=== PATIENT | female | born 1945 | race Caucasian/White ===

== ENCOUNTER 2018-11-26 17:07 | Observation (INO) | payer OTHER, SELFPAY ==
[2018-11-26 17:15] VITALS: BP 115/77; PULSE 76; RESP 18; TEMP 36.2; O2SAT 100
--- NOTE | 2018-11-26 17:21 | DI.RAD.S_ITS ---
PROCEDURE: XR CHEST 1V INDICATIONS: chest pain TECHNIQUE: One view of the chest was acquired. COMPARISON: None. FINDINGS: Surgical changes and devices: None. Lungs and pleura: The interstitial prominence is identified within the bilateral perihilar regions is present without focal consolidation evident. No effusion or pneumothorax is identified. Mediastinum: Mediastinal contours appear normal. Heart size is normal. Bones and chest wall: No suspicious bony lesions. Overlying soft tissues appear unremarkable. IMPRESSION: Mild to prominent perihilar interstitial markings may be exaggerated by a chronic interstitial changes. Pulmonary edema is difficult to exclude. Dictated by: Robbin Villanueva M.D. on 11/26/2018 at 16:33 Approved by: Robbin Villanueva M.D. on 11/26/2018 at 16:40
[2018-11-26] MEDS: SODIUM CHLORIDE 0.9% 1,000 ML 1000 ML IV (17:57)
[2018-11-26 17:58] VITALS: BP 122/73; PULSE 76; RESP 16; O2SAT 95
[2018-11-26 18:00] LABS: Add Manual Diff / Slide Review NO; Basophils Absolute Auto 0 /uL (0-100); Basophils Percent Auto 0.9 % (0-2); Eosinophils Absolute Auto 0 /uL (0-450); Eosinophils Percent Auto 0.6 % (2-4); Hematocrit 43.4 % (36-46); Hemoglobin 14.8 g/dL (12.0-16.0); Lymphocytes Absolute Auto 700 /uL (1100-4500); Lymphocytes Percent Auto 15.9 % (25-40); Mean Corpuscular HGB Conc 34.2 % (30-36); Mean Corpuscular Hemoglobin 30.6 PG (26-34); Mean Corpuscular Volume 89.5 fL (80-100); Monocytes Absolute Auto 300 /uL (0-900); Monocytes Percent Auto 7.7 % (3-14); Neutrophils Absolute Auto 3200 /uL (1500-7000); Neutrophils Percent Auto 74.9 % (50-75); Platelet Count 190 X10^3/uL (150-400); Red Blood Cell Count 4.86 X10^6/uL (4.0-5.2); Red Cell Distribution Width 12.8 % (11.6-14.8); White Blood Cell Count 4.2 X10^3/uL (4.5-11.0)
[2018-11-26 18:09] LABS: Prothrombin Time 11.5 SECONDS (10.1-12.7)
[2018-11-26 18:11] LABS: Lactate (Lactic Acid) 1.3 mmol/L (0.7-2.1)
[2018-11-26 18:12] LABS: Alanine Aminotransferase 28 IU/L (9-52); Albumin 4.2 g/dL (3.5-5.0); Albumin Globulin Ratio 1.2 (1.0-2.8); Alkaline Phosphatase 72 U/L (38-126); Aspartate Aminotransferase 46 IU/L (14-36); BUN Creatinine Ratio 14.4 (6-22); Bilirubin Total 0.8 mg/dL (0.2-1.3); Blood Urea Nitrogen 13 mg/dL (7-17); Calcium 8.6 mg/dL (8.4-10.2); Carbon Dioxide 30 mmol/L (22-32); Chloride 96 mmol/L (98-107); Creatine Kinase 233 U/L (30-135); Estimated Glomerular Filt Rate > 60.0 mL/min (>60); Globulin 3.5 g/dL (1.7-4.1); Glucose 124 mg/dL (80-110); HEMOLYSIS < 15 (0-50); Lipase 99 U/L (23-300); Sodium 138 mmol/L (137-145); Total Protein 7.7 g/dL (6.3-8.2)
[2018-11-26 18:17] LABS: PTT Partial Thromboplastin Tim 28 SECONDS (26.4-36.2)
[2018-11-26 18:23] LABS: Troponin I 0.018 ng/mL (0.01-0.034)
[2018-11-26 18:30] VITALS: BP 143/67; PULSE 74; RESP 18; O2SAT 99
[2018-11-26 18:40] LABS: Creatine Kinase MB 2.37 ng/mL (<2.37)
[2018-11-26 18:41] LABS: Potassium 2.4 mmol/L (3.4-5.1)
--- NOTE | 2018-11-26 18:47 | ED.SYNCOPE ---
HPI - Syncope General Chief Complaint: Syncope Stated Complaint: syncopal episode,passed out today,low body temp Time Seen by Provider: 11/26/18 18:29 Source: patient and family Limitations: no limitations History of Present Illness HPI narrative: 73-year-old female with history of hypertension, nonsmoking presents with her in the chief complaint of a syncopal episode this afternoon. She had been walking in her hallway when she felt herself get a bit dizzy, flushed and lightheaded. She then lost consciousness and collapsed to the floor. She denies any injury. she denies any chest pain or blurred vision. She does state for the past 2-3 days she has had some headache, sore throat and dry cough. She is visiting with her from [place]. complaint: loss of consciousness Onset (ago): hour(s) Prodromal symptoms: lightheaded Witnessed: yes - by bystander Injuries sustained associated with event: none Current symptoms: none Related Data Home Medications Medication Instructions Recorded Confirmed CARBASALAATCALCIUM 100 mg PO DAILY 11/26/18 11/26/18 enalapril-hydrochlorothiazide 20 mg PO DAILY 11/26/18 11/26/18 levothyroxine 25 mcg PO DAILY 11/26/18 11/26/18 simvastatin 40 mg PO BEDTIME 11/26/18 11/26/18 Allergies Allergy/AdvReac Type Severity Reaction Status Date / Time No Known Drug Allergies Allergy Verified 11/26/18 17:18 Review of Systems Constitutional Denies chills, Denies fever(s), Denies lethargy and Denies weakness Eyes Denies change in vision, Denies eye discharge, Denies irritation and Denies loss of vision ENT Ears, Nose, Mouth, and Throat: Denies change in voice, Denies neck pain and Reports sore throat Cardiovascular Denies chest pain, Denies irregular heart rhythm, Denies lightheadedness, Denies palpitations, Denies dyspnea, Denies dyspnea on exertion and Denies orthopnea Respiratory Reports cough, Denies dyspnea, Denies dyspnea on exertion and Denies wheezing Gastrointestinal Gastrointestinal: Denies abdominal pain, Denies change in bowel habits, Denies diarrhea, Denies nausea and Denies vomiting Genitourinary Denies hematuria, Denies flank pain, Denies urinary incontinence and Denies urinary urgency Musculoskeletal Denies neck pain Integumentary/Breasts Denies pruritus, Denies erythema, Denies rash and Denies wounds Neurologic Denies confusion, Denies loss of vision and Denies weakness Psychiatric Denies anxiety, Denies confusion, Denies depression, Denies homicidal ideation and Denies suicidal ideation Endocrine Denies palpitations Hematologic/Lymphatic Denies easy bruising Allergic/Immunologic Denies wheezing [facility] Medical History History of hysterectomy (Acute) Hyperlipidemia (Acute) Hypertension (Acute) Hypothyroidism (Acute) Surgical History History of appendectomy (Acute) History of total right knee replacement (Acute) Social History household members: spouse and children Smoking Status: Never smoker Social History household members: spouse and children Smoking Status: Never smoker Exam Narrative Exam Narrative: GENERAL: This is a well-nourished, well-developed patient, in mild distress. HEAD: Atraumatic. Normocephalic. No temporal or scalp tenderness. EYES: Pupils equal round and reactive. Extraocular motions intact. No scleral icterus. No injection or drainage. ENT: Nose without bleeding, purulent drainage or septal hematoma. Throat without erythema, tonsillar hypertrophy or exudate. Uvula midline. Airway patent. NECK: Trachea midline. No JVD or lymphadenopathy. Supple, nontender, no meningeal signs. CARDIOVASCULAR: Regular rate and rhythm without murmurs, gallops, or rubs. RESPIRATORY: Clear to auscultation. Breath sounds equal bilaterally. No wheezes, rales, or rhonchi. GASTROINTESTINAL: Abdomen soft, non-tender, nondistended. No hepato-splenomegaly, or palpable masses. No guarding. EXTREMITIES: No clubbing, cyanosis, or edema. No joint tenderness, effusion, or edema noted. BACK: Nontender without deformity or crepitance. No flank tenderness. NEURO: AOx3. SKIN: No rash or erythema. Initial Vital Signs Initial Vital Signs: Vital Signs Temperature 97.1 F L 11/26/18 17:15 Pulse Rate 76 11/26/18 17:15 Respiratory Rate 18 11/26/18 17:15 Blood Pressure 115/77 11/26/18 17:15 Pulse Oximetry 100 11/26/18 17:15 Course Course Narrative: hospitalist happy to accept patient on his service Orders Ordered: ED Orders 11/26/18 21:51 Consult to Dietitian, Adult Routine 11/26/18 21:52 Consult to Discharge Planning Routine 11/26/18 23:00 Basic Metabolic Panel Urgent 11/27/18 05:00 Basic Metabolic Panel Routine Complete Blood Count AUTO DIFF Routine Magnesium Routine TSH [Thyroid Stimulating Hormone] Routine Troponin I Routine Acetaminophen (Tylenol) 650 mg PO Q6H PRN PRN Reason: As Needed for Fever/Mild Pain Al Hydrox/Mg Hydrox/Simethicone (Maalox Plus) 30 ml PO Q6HR PRN PRN Reason: Dyspepsia Sodium Chloride (Normal Saline 0.9%) 1,000 mls @ 50 mls/hr IV CONT [facility] Last Admin: 11/26/18 22:55 Dose: 50 mls/hr Potassium Chloride 40 meq/ (Sodium Chloride) 520 mls @ 130 mls/hr IV NOW ONE Stop: 11/27/18 07:08 Last Admin: 11/27/18 04:15 Dose: 130 mls/hr Levothyroxine Sodium (Synthroid) 25 mcg PO 0600 [facility] Morphine Sulfate (Morphine) 2 mg IV Q4H PRN PRN Reason: Pain, Moderate (4-6) Naloxone HCl (Narcan) 0.2 mg IV Q2MIN PRN PRN Reason: Opiate Reversal Non-Formulary Medication (Carbasalaatcalcium) 100 mg PO DAILY SHANNON Ondansetron HCl (Zofran) 4 mg IV Q8HR PRN PRN Reason: Nausea And Vomiting Pantoprazole Sodium (Protonix) 20 mg PO 0600 [facility] Last Admin: 11/26/18 22:55 Dose: Not Given Simvastatin (Zocor) 40 mg PO BEDTIME [facility] Last Admin: 11/27/18 00:25 Dose: Not Given Discontinued Medications Sodium Chloride (Normal Saline 0.9%) 1,000 mls @ 1,000 mls/hr IV BOLUS ONE Stop: 11/26/18 18:24 Last Infusion: 11/26/18 19:07 Dose: 0 mls/hr Admin: 11/26/18 17:57 Dose: 1,000 mls/hr Potassium Chloride 40 meq/ (Sodium Chloride) 520 mls @ 130 mls/hr IV NOW ONE Stop: 11/26/18 22:47 Last Infusion: 11/27/18 00:42 Dose: 0 mls/hr Admin: 11/26/18 19:02 Dose: 130 mls/hr Oseltamivir Phosphate (Tamiflu) 75 mg PO NOW ONE Stop: 11/26/18 19:23 Last Admin: 11/26/18 19:50 Dose: 75 mg Potassium Chloride (Potassium Chloride) 40 meq PO NOW ONE Stop: 11/26/18 18:49 Last Admin: 11/26/18 19:06 Dose: 40 meq Vital Signs - 8 hr 11/27/18 00:26 11/27/18 04:00 11/27/18 04:35 Temperature 98.8 F 98.1 F Pulse Rate 61 67 Pulse Rate [Orthostatic Lying] 67 Pulse Rate [Orthostatic Sitting] 77 Pulse Rate [Orthostatic Standing] 82 Respiratory Rate 18 20 Blood Pressure 130/70 137/76 Blood Pressure [Orthostatic Lying] 137/76 Blood Pressure [Orthostatic Sitting] 133/83 Blood Pressure [Orthostatic Standing] 115/76 Pulse Oximetry 95 95 MDM - Syncope Lab Data Result diagrams: 11/26/18 17:15 11/26/18 23:00 Lab Results 11/26/18 11/26/18 11/26/18 Range/Units 17:15 17:15 17:15 WBC 4.2 L (4.5-11.0) X10^3/uL RBC 4.86 (4.0-5.2) X10^6/uL Hgb 14.8 (12.0-16.0) g/dL Hct 43.4 (36-46) % MCV 89.5 (80-100) fL MCH 30.6 (26-34) PG MCHC 34.2 (30-36) % RDW 12.8 (11.6-14.8) % Plt Count 190 (150-400) X10^3/uL Neut % (Auto) 74.9 (50-75) % Lymph % (Auto) 15.9 L (25-40) % Fannin % (Auto) 7.7 (3-14) % Eos % (Auto) 0.6 L (2-4) % Baso % (Auto) 0.9 (0-2) % Neut # (Auto) 3200 (4572-3408) /uL Lymph # (Auto) 700 L (4023-1279) /uL Fannin # (Auto) 300 (0-900) /uL Eos # (Auto) 0 (0-450) /uL Baso # (Auto) 0 (0-100) /uL PT 11.5 (10.1-12.7) SECONDS INR 1.0 (0.9-1.3) APTT 28 (26.4-36.2) SECONDS Sodium 138 (137-145) mmol/L Potassium 2.4 L* (3.4-5.1) mmol/L Chloride 96 L (98-107) mmol/L Carbon Dioxide 30 (22-32) mmol/L BUN 13 (7-17) mg/dL Creatinine 0.90 (0.52-1.04) mg/dL Estimated GFR > 60.0 (>60) mL/min BUN/Creatinine Ratio 14.4 (6-22) Glucose 124 H (80-110) mg/dL Lactate (0.7-2.1) mmol/L Calcium 8.6 (8.4-10.2) mg/dL Total Bilirubin 0.8 (0.2-1.3) mg/dL AST 46 H (14-36) IU/L ALT 28 (9-52) IU/L Alkaline Phosphatase 72 (38-126) U/L Total Creatine Kinase 233 H (30-135) U/L CK-MB (CK-2) 2.37 (<2.37) ng/mL CK-MB (CK-2) Rel Index 1.0 L (1.5-5.0) % Troponin I 0.018 (0.01-0.034) ng/mL Total Protein 7.7 (6.3-8.2) g/dL Albumin 4.2 (3.5-5.0) g/dL Globulin 3.5 (1.7-4.1) g/dL Albumin/Globulin Ratio 1.2 (1.0-2.8) Lipase 99 (23-300) U/L Influenza A & B (PCR) (Negative) 11/26/18 11/26/18 11/26/18 Range/Units 17:15 17:20 23:00 WBC (4.5-11.0) X10^3/uL RBC (4.0-5.2) X10^6/uL Hgb (12.0-16.0) g/dL Hct (36-46) % MCV (80-100) fL MCH (26-34) PG MCHC (30-36) % RDW (11.6-14.8) % Plt Count (150-400) X10^3/uL Neut % (Auto) (50-75) % Lymph % (Auto) (25-40) % Fannin % (Auto) (3-14) % Eos % (Auto) (2-4) % Baso % (Auto) (0-2) % Neut # (Auto) (1063-7595) /uL Lymph # (Auto) (9860-0730) /uL Fannin # (Auto) (0-900) /uL Eos # (Auto) (0-450) /uL Baso # (Auto) (0-100) /uL PT (10.1-12.7) SECONDS INR (0.9-1.3) APTT (26.4-36.2) SECONDS Sodium 138 (137-145) mmol/L Potassium 3.3 L (3.4-5.1) mmol/L Chloride 105 (98-107) mmol/L Carbon Dioxide 26 (22-32) mmol/L BUN 12 (7-17) mg/dL Creatinine 0.70 (0.52-1.04) mg/dL Estimated GFR > 60.0 (>60) mL/min BUN/Creatinine Ratio 17.1 (6-22) Glucose 131 H (80-110) mg/dL Lactate 1.3 (0.7-2.1) mmol/L Calcium 7.9 L (8.4-10.2) mg/dL Total Bilirubin (0.2-1.3) mg/dL AST (14-36) IU/L ALT (9-52) IU/L Alkaline Phosphatase (38-126) U/L Total Creatine Kinase (30-135) U/L CK-MB (CK-2) (<2.37) ng/mL CK-MB (CK-2) Rel Index (1.5-5.0) % Troponin I (0.01-0.034) ng/mL Total Protein (6.3-8.2) g/dL Albumin (3.5-5.0) g/dL Globulin (1.7-4.1) g/dL Albumin/Globulin Ratio (1.0-2.8) Lipase (23-300) U/L Influenza A & B (PCR) Positive, type a A (Negative) MDM Narrative Medical decision making narrative: 73-year-old female presents with upper respiratory symptoms consistent with flu as well as a syncopal episode which was unprovoked. She has a history of use of hydrochlorothiazide and a critically low potassium. She requires hospitalization for stabilization and further evaluation Discharge Plan Departure Patient Disposition: Admitted as Observation Clinical Impression: Acute hypokalemia, Flu Discharge Date/Time: 11/26/18 20:20 Interventions: ED Discharge Assessment Last Done: 11/26/18 19:59 Admit Date/Time: 11/26/18 19:26 Admit Provider: Reji Dumont
[2018-11-26] MEDS: POTASSIUM CHLORIDE 40 MEQ in SODIUM CHLORIDE 0.9% 500 ML 130 ML IV (19:02)
[2018-11-26] MEDS: POTASSIUM CHLORIDE 20 MEQ/15 ML UDC 40 MEQ PO (19:06)
[2018-11-26 19:08] VITALS: TEMP 37.2
[2018-11-26] MEDS: OSELTAMIVIR 75 MG CAPSULE PO (19:50)
[2018-11-26 19:59] VITALS: BP 143/78; PULSE 72; RESP 16; O2SAT 100
[2018-11-26 20:30] VITALS: BP 156/87; PULSE 69; RESP 15; TEMP 36.8; O2SAT 95
[2018-11-26 22:06] VITALS: BMI 27.3
--- NOTE | 2018-11-26 22:19 | PC.NURSE ---
Pt admitted to acute care from ER. Alert/oriented. Austrian is primary language. Does understand/speak syriac, though has trouble understanding occasionally. Re-phrasing helped. Denies pain. IV K-pina infusing w/o complications. Oriented to room/call light. Bed alarm on. Fell this morning at home.
--- NOTE | 2018-11-26 22:20 | P.HP_ITS ---
History of Present Illness Date Patient Seen: 11/26/18 Time Patient Seen: 21:06 Chief complaint: syncopal episode,passed out today,low body temp Narrative: This is a 73-year-old female patient with a history of hypertension, hyperlipidemia, hypothyroidism and very strong family history of cardiovascular disease who presents today to the ER with illness for 4-5 days, weakness and syncopal episode. The patient traveled to the [facility] from [place] 1 week ago. Shortly after arriving the patient began feeling ill complaining of dry nonproductive cough, sore throat and headache as well as general malaise and poor appetite. Patient states she fell twice today feeling initial had tingling and weakness in her extremities. The 1st time was shortly after awaking in the morning where she fell landing on her right hip but did not strike her head and denies loss of consciousness neck or back pain and has been ambulatory since. The 2nd time occurred as the patient was making tea, again she felt had tingling weakness and this time reports the going to the floor and passing. The patient denies trauma related to either fall. Patient has a history of hypertension takes enalapril hydrochlorothiazide 20/12.5 mg daily which she indicates she has not taken for the last few days. Her pressure on arrival to the ER was 115/77 with a heart rate of 76. lab work in the ER shows a normal CBC and coags, CMP reveals potassium 2.4 sodium 138 and BUN of 13 and creatinine of 0.9. Her troponin is negative at 0.018. on serology she is found to be positive for influenza A.The patient denies complaints of disease than the episodic tingling preceding her falls. She denies changes in vision or hearing and has complained of a dull cervical occipital headache without nuchal rigidity. She denies chest pain or palpitations. She has had a positive cough denies shortness of breath. She describes having no appetite related to upset stomach but has not vomited until arrival to the floor for admission. She denies constipation diarrhea and reports no urinary symptoms. The patient is admitted for hypokalemia, generalized weakness and influenza A. Patient History Medical History (Updated 11/26/18 @ 22:18 by ANTON Oliviera) History of hysterectomy (Acute) Hyperlipidemia (Acute) Hypertension (Acute) Hypothyroidism (Acute) Surgical History History of appendectomy (Acute) History of total right knee replacement (Acute) Social History Smoking Status: Never smoker Family & Social History Safety & Behavioral: Feels Safe in Current Yes Environment Been Physically Hurt or No Threatened By a Person Tobacco & Substance use: Smoking Status Never smoker alcohol intake frequency 0-2 drinks per day Substance Use Type does not use Comment: The patient lives in a single family home in the [facility] and is visiting [facility] having right 1 week ago with a planned length stay of another 2 weeks. Patient is visiting her daughter with her whom she has been for 50 years. The patient's father heart attack at age 58 and her mother at age 61 cardiovascular disease. she has multiple siblings all with cardiovascular disease including brothers and sisters with cardiovascular disease and having had bypass surgery. Smoking: Tried smoking at age 15 but did not like it. Alcohol: Rare alcohol consumption Substance use: Patient denies recreation firm pseudo colles, herbal or cannabis products Advanced directives: The patient desires to be a FULL CODE. Her is designated as surrogate decision maker. Meds Home Medications Medication Instructions Recorded Confirmed Type CARBASALAATCALCIUM 100 mg PO DAILY 11/26/18 11/26/18 History enalapril-hydrochlorothiazide 20 mg PO DAILY 11/26/18 11/26/18 History levothyroxine 25 mcg PO DAILY 11/26/18 11/26/18 History simvastatin 40 mg PO BEDTIME 11/26/18 11/26/18 History Allergies Allergy/AdvReac Type Severity Reaction Status Date / Time No Known Drug Allergies Allergy Verified 11/26/18 17:18 Review of Systems Review of Systems All systems reviewed & are unremarkable except as noted in HPI and below Exam Vital Signs (past 8 hours): - 11/26/18 17:15 11/26/18 17:58 11/26/18 18:30 Temperature 97.1 F L Pulse Rate 76 76 74 Respiratory Rate 18 16 18 Blood Pressure 115/77 Blood Pressure [Left Arm] 122/73 143/67 H Pulse Oximetry 100 95 99 11/26/18 19:08 11/26/18 19:59 11/26/18 20:30 Temperature 98.9 F 98.3 F Pulse Rate 72 69 Respiratory Rate 16 15 Blood Pressure 143/78 H 156/87 H Blood Pressure [Left Arm] Pulse Oximetry 100 95 Oxygen Delivery Method Room Air Narrative Exam Narrative: GENERAL APPEARANCE: well developed, well nourished, afebrile and ill-appearing HEAD: Normocephalic, atraumatic, no scalp lesions. EYES: pupils equal, round, reactive to light and accommodation, sclera non- icteric, extraocular movement intact . EARS: normal external structures, no ear pain NOSE: sinuses non tender to percussion, no rhinorrhea ORAL CAVITY: mucosa dry without lesions or exudate, palate normal, tongue in midline. THROAT: normal, no erythema, no exudate, pharynx normal, uvula midline. NECK/THYROID: neck supple, no jugular venous distention, no carotid bruit, no thyromegaly, trachea midline. LYMPH NODES: no cervical or supraclavicular lymphadenopathy. SKIN: warm and dry, no suspicious lesions, no rashes, good turgor. HEART: regular rate and rhythm, S1-S2 without murmur, rubs, gallops, capillary refill approximately 3 seconds, no edema LUNGS: clear to auscultation bilaterally, no coarseness crackles or wheezing, no cough present CHEST: Symmetrical movement, no accessory muscle use, no pain to AP and lateral compression. ABDOMEN: Soft, no distention, epigastric discomfort on palpation, no other abdominal tenderness, no guarding or peritoneal signs, no organomegaly, no flank or suprapubic tenderness BACK: Normal curvature, nontender to palpation, no CVA tenderness on percussion EXTREMITIES: moves all extremities, strength is 5/5 and symmetrical, well perfused. NEUROLOGIC: AAO x4, no focal neurologic deficits, cranial nerves II-XII grossly intact , motor strength normal upper and lower extremities, sensory exam intact to light touch, hearing grossly normal to speech. PSYCH: alert, cognitive function intact, good eye contact, stable mood with congruent affect Objective Labs Result Diagrams: 11/26/18 17:15 11/26/18 17:15 Labs: Laboratory Results - last 24 hr 11/26/18 11/26/18 11/26/18 17:15 17:15 17:15 WBC 4.2 L RBC 4.86 Hgb 14.8 Hct 43.4 MCV 89.5 MCH 30.6 MCHC 34.2 RDW 12.8 Plt Count 190 Neut % (Auto) 74.9 Lymph % (Auto) 15.9 L Arthur % (Auto) 7.7 Eos % (Auto) 0.6 L Baso % (Auto) 0.9 Neut # (Auto) 3200 Lymph # (Auto) 700 L Arthur # (Auto) 300 Eos # (Auto) 0 Baso # (Auto) 0 PT 11.5 INR 1.0 APTT 28 Sodium 138 Potassium 2.4 L* Chloride 96 L Carbon Dioxide 30 BUN 13 Creatinine 0.90 Estimated GFR > 60.0 BUN/Creatinine Ratio 14.4 Glucose 124 H Lactate Calcium 8.6 Total Bilirubin 0.8 AST 46 H ALT 28 Alkaline Phosphatase 72 Total Creatine Kinase 233 H CK-MB (CK-2) 2.37 CK-MB (CK-2) Rel Index 1.0 L Troponin I 0.018 Total Protein 7.7 Albumin 4.2 Globulin 3.5 Albumin/Globulin Ratio 1.2 Lipase 99 Influenza A & B (PCR) 11/26/18 11/26/18 17:15 17:20 WBC RBC Hgb Hct MCV MCH MCHC RDW Plt Count Neut % (Auto) Lymph % (Auto) Arthur % (Auto) Eos % (Auto) Baso % (Auto) Neut # (Auto) Lymph # (Auto) Arthur # (Auto) Eos # (Auto) Baso # (Auto) PT INR APTT Sodium Potassium Chloride Carbon Dioxide BUN Creatinine Estimated GFR BUN/Creatinine Ratio Glucose Lactate 1.3 Calcium Total Bilirubin AST ALT Alkaline Phosphatase Total Creatine Kinase CK-MB (CK-2) CK-MB (CK-2) Rel Index Troponin I Total Protein Albumin Globulin Albumin/Globulin Ratio Lipase Influenza A & B (PCR) Positive, type a A Assessment & Plan Assessment & Plan narrative: The patient is admitted to the hospital for correction of hypokalemia. Patient unable to tolerate oral potassium related to nausea and vomiting necessitating IV repletion. 1. Hypokalemia, acute -the patient has not had any nausea, vomiting or diarrhea prior to admission, she has previously been on hydrochlorothiazide which he has not taken for the last few days. -complaints of muscular weakness, no complaints palpitations -potassium on admission is 2.4 which is treated in the ER with 40 mEq IV and 40 mEq by mouth. -patient with subsequent nausea vomiting necessitating further repletion through the IV. -will recheck potassium at 11:00 p.m.. -12 lead EKG shows sinus rhythm ventricular rate of 63 with occasional PAC, no ventricular ectopy, Q-waves in inferior leads. -will monitor the patient on telemetry. 2. Hypertension, chronic -patient has been taking enalapril-hydrochlorothiazide 20/12.5 mg up until a few days ago. -1 episode of near-syncope and 1 episode of syncope likely related to hypertension and dehydration both occurring when the patient is active -blood pressure on arrival is 115/77. The patient has received fluid bolus in emergency department. Will obtain orthostatic vital signs. -no complaints of chest pain, will hold antihypertensive for now 3. Influenza A, acute -flu symptoms for 4-5 days with malaise, sore throat, headache, no nausea vomiting, no diarrhea or constipation -patient with lack of appetite and apparent poor oral fluid intake -patient with dry and nonproductive cough but no complaints of shortness of breath -patient's symptoms uncomplicated, will not start Tamiflu. 4. Hypothyroidism, chronic -will continue the patient's levothyroxine 25 mcg daily 5. Hyperlipidemia, chronic -will continue simvastatin 40 mg daily Time Spent With Patient Time with patient: 25 - 35 minutes
[2018-11-26] MEDS: SODIUM CHLORIDE 0.9% 1,000 ML 50 ML IV (22:55)
[2018-11-26 23:18] LABS: BUN Creatinine Ratio 17.1 (6-22); Blood Urea Nitrogen 12 mg/dL (7-17); Calcium 7.9 mg/dL (8.4-10.2); Carbon Dioxide 26 mmol/L (22-32); Chloride 105 mmol/L (98-107); Estimated Glomerular Filt Rate > 60.0 mL/min (>60); Glucose 131 mg/dL (80-110); HEMOLYSIS < 15 (0-50); Potassium 3.3 mmol/L (3.4-5.1); Sodium 138 mmol/L (137-145)
[2018-11-27 00:26] VITALS: BP 130/70; PULSE 61; RESP 18; TEMP 37.1; O2SAT 95
[2018-11-27 04:00] VITALS: BP 137/76; PULSE 67; RESP 20; TEMP 36.7; O2SAT 95
[2018-11-27] MEDS: POTASSIUM CHLORIDE 40 MEQ in SODIUM CHLORIDE 0.9% 500 ML 130 ML IV (04:15)
[2018-11-27 04:35] VITALS: BP 115/76; BP 133/83; BP 137/76; PULSE 67; PULSE 77; PULSE 82
--- NOTE | 2018-11-27 05:44 | ED_ITS ---
HPI - Syncope General Chief Complaint: Syncope Stated Complaint: syncopal episode,passed out today,low body temp Time Seen by Provider: 11/26/18 18:29 Source: patient and family Limitations: no limitations History of Present Illness HPI narrative: 73-year-old female with history of hypertension, nonsmoking presents with her in the chief complaint of a syncopal episode this afternoon. She had been walking in her hallway when she felt herself get a bit dizzy, flushed and lightheaded. She then lost consciousness and collapsed to the floor. She denies any injury. she denies any chest pain or blurred vision. She does state for the past 2-3 days she has had some headache, sore throat and dry cough. She is visiting with her from [place]. complaint: loss of consciousness Onset (ago): hour(s) Prodromal symptoms: lightheaded Witnessed: yes - by bystander Injuries sustained associated with event: none Current symptoms: none Related Data Home Medications Medication Instructions Recorded Confirmed CARBASALAATCALCIUM 100 mg PO DAILY 11/26/18 11/26/18 enalapril-hydrochlorothiazide 20 mg PO DAILY 11/26/18 11/26/18 levothyroxine 25 mcg PO DAILY 11/26/18 11/26/18 simvastatin 40 mg PO BEDTIME 11/26/18 11/26/18 Allergies Allergy/AdvReac Type Severity Reaction Status Date / Time No Known Drug Allergies Allergy Verified 11/26/18 17:18 Review of Systems Constitutional Denies chills, Denies fever(s), Denies lethargy and Denies weakness Eyes Denies change in vision, Denies eye discharge, Denies irritation and Denies loss of vision ENT Ears, Nose, Mouth, and Throat: Denies change in voice, Denies neck pain and Reports sore throat Cardiovascular Denies chest pain, Denies irregular heart rhythm, Denies lightheadedness, Denies palpitations, Denies dyspnea, Denies dyspnea on exertion and Denies orthopnea Respiratory Reports cough, Denies dyspnea, Denies dyspnea on exertion and Denies wheezing Gastrointestinal Gastrointestinal: Denies abdominal pain, Denies change in bowel habits, Denies diarrhea, Denies nausea and Denies vomiting Genitourinary Denies hematuria, Denies flank pain, Denies urinary incontinence and Denies urinary urgency Musculoskeletal Denies neck pain Integumentary/Breasts Denies pruritus, Denies erythema, Denies rash and Denies wounds Neurologic Denies confusion, Denies loss of vision and Denies weakness Psychiatric Denies anxiety, Denies confusion, Denies depression, Denies homicidal ideation and Denies suicidal ideation Endocrine Denies palpitations Hematologic/Lymphatic Denies easy bruising Allergic/Immunologic Denies wheezing [facility] Medical History History of hysterectomy (Acute) Hyperlipidemia (Acute) Hypertension (Acute) Hypothyroidism (Acute) Surgical History History of appendectomy (Acute) History of total right knee replacement (Acute) Social History household members: spouse and children Smoking Status: Never smoker Social History household members: spouse and children Smoking Status: Never smoker Exam Narrative Exam Narrative: GENERAL: This is a well-nourished, well-developed patient, in mild distress. HEAD: Atraumatic. Normocephalic. No temporal or scalp tenderness. EYES: Pupils equal round and reactive. Extraocular motions intact. No scleral icterus. No injection or drainage. ENT: Nose without bleeding, purulent drainage or septal hematoma. Throat without erythema, tonsillar hypertrophy or exudate. Uvula midline. Airway patent. NECK: Trachea midline. No JVD or lymphadenopathy. Supple, nontender, no meningeal signs. CARDIOVASCULAR: Regular rate and rhythm without murmurs, gallops, or rubs. RESPIRATORY: Clear to auscultation. Breath sounds equal bilaterally. No wheezes, rales, or rhonchi. GASTROINTESTINAL: Abdomen soft, non-tender, nondistended. No hepato- splenomegaly, or palpable masses. No guarding. EXTREMITIES: No clubbing, cyanosis, or edema. No joint tenderness, effusion, or edema noted. BACK: Nontender without deformity or crepitance. No flank tenderness. NEURO: AOx3. SKIN: No rash or erythema. Initial Vital Signs Initial Vital Signs: Vital Signs Temperature 97.1 F L 11/26/18 17:15 Pulse Rate 76 11/26/18 17:15 Respiratory Rate 18 11/26/18 17:15 Blood Pressure 115/77 11/26/18 17:15 Pulse Oximetry 100 11/26/18 17:15 Course Course Narrative: hospitalist happy to accept patient on his service Orders Ordered: ED Orders 11/26/18 21:51 Consult to Dietitian, Adult Routine 11/26/18 21:52 Consult to Discharge Planning Routine 11/26/18 23:00 Basic Metabolic Panel Urgent 11/27/18 05:00 Basic Metabolic Panel Routine Complete Blood Count AUTO DIFF Routine Magnesium Routine TSH [Thyroid Stimulating Hormone] Routine Troponin I Routine Acetaminophen (Tylenol) 650 mg PO Q6H PRN PRN Reason: As Needed for Fever/Mild Pain Al Hydrox/Mg Hydrox/Simethicone (Maalox Plus) 30 ml PO Q6HR PRN PRN Reason: Dyspepsia Sodium Chloride (Normal Saline 0.9%) 1,000 mls @ 50 mls/hr IV CONT [facility] Last Admin: 11/26/18 22:55 Dose: 50 mls/hr Potassium Chloride 40 meq/ (Sodium Chloride) 520 mls @ 130 mls/hr IV NOW ONE Stop: 11/27/18 07:08 Last Admin: 11/27/18 04:15 Dose: 130 mls/hr Levothyroxine Sodium (Synthroid) 25 mcg PO 0600 [facility] Morphine Sulfate (Morphine) 2 mg IV Q4H PRN PRN Reason: Pain, Moderate (4-6) Naloxone HCl (Narcan) 0.2 mg IV Q2MIN PRN PRN Reason: Opiate Reversal Non-Formulary Medication (Carbasalaatcalcium) 100 mg PO DAILY [facility] Ondansetron HCl (Zofran) 4 mg IV Q8HR PRN PRN Reason: Nausea And Vomiting Pantoprazole Sodium (Protonix) 20 mg PO 0600 [facility] Last Admin: 11/26/18 22:55 Dose: Not Given Simvastatin (Zocor) 40 mg PO BEDTIME [facility] Last Admin: 11/27/18 00:25 Dose: Not Given Discontinued Medications Sodium Chloride (Normal Saline 0.9%) 1,000 mls @ 1,000 mls/hr IV BOLUS ONE Stop: 11/26/18 18:24 Last Infusion: 11/26/18 19:07 Dose: 0 mls/hr Admin: 11/26/18 17:57 Dose: 1,000 mls/hr Potassium Chloride 40 meq/ (Sodium Chloride) 520 mls @ 130 mls/hr IV NOW ONE Stop: 11/26/18 22:47 Last Infusion: 11/27/18 00:42 Dose: 0 mls/hr Admin: 11/26/18 19:02 Dose: 130 mls/hr Oseltamivir Phosphate (Tamiflu) 75 mg PO NOW ONE Stop: 11/26/18 19:23 Last Admin: 11/26/18 19:50 Dose: 75 mg Potassium Chloride (Potassium Chloride) 40 meq PO NOW ONE Stop: 11/26/18 18:49 Last Admin: 11/26/18 19:06 Dose: 40 meq Vital Signs - 8 hr 11/27/18 00:26 11/27/18 04:00 11/27/18 04:35 Temperature 98.8 F 98.1 F Pulse Rate 61 67 Pulse Rate [Orthostatic Lying] 67 Pulse Rate [Orthostatic Sitting] 77 Pulse Rate [Orthostatic Standing] 82 Respiratory Rate 18 20 Blood Pressure 130/70 137/76 Blood Pressure [Orthostatic Lying] 137/76 Blood Pressure [Orthostatic Sitting] 133/83 Blood Pressure [Orthostatic Standing] 115/76 Pulse Oximetry 95 95 MDM - Syncope Lab Data Result diagrams: 11/26/18 17:15 11/26/18 23:00 Lab Results 11/26/18 11/26/18 11/26/18 Range/Units 17:15 17:15 17:15 WBC 4.2 L (4.5-11.0) X10^3/uL RBC 4.86 (4.0-5.2) X10^6/uL Hgb 14.8 (12.0-16.0) g/dL Hct 43.4 (36-46) % MCV 89.5 (80-100) fL MCH 30.6 (26-34) PG MCHC 34.2 (30-36) % RDW 12.8 (11.6-14.8) % Plt Count 190 (150-400) X10^3/uL Neut % (Auto) 74.9 (50-75) % Lymph % (Auto) 15.9 L (25-40) % [place] % (Auto) 7.7 (3-14) % Eos % (Auto) 0.6 L (2-4) % Baso % (Auto) 0.9 (0-2) % Neut # (Auto) 3200 (7732-1680) /uL Lymph # (Auto) 700 L (8466-0110) /uL [place] # (Auto) 300 (0-900) /uL Eos # (Auto) 0 (0-450) /uL Baso # (Auto) 0 (0-100) /uL PT 11.5 (10.1-12.7) SECONDS INR 1.0 (0.9-1.3) APTT 28 (26.4-36.2) SECONDS Sodium 138 (137-145) mmol/L Potassium 2.4 L* (3.4-5.1) mmol/L Chloride 96 L (98-107) mmol/L Carbon Dioxide 30 (22-32) mmol/L BUN 13 (7-17) mg/dL Creatinine 0.90 (0.52-1.04) mg/dL Estimated GFR > 60.0 (>60) mL/min BUN/Creatinine Ratio 14.4 (6-22) Glucose 124 H (80-110) mg/dL Lactate (0.7-2.1) mmol/L Calcium 8.6 (8.4-10.2) mg/dL Total Bilirubin 0.8 (0.2-1.3) mg/dL AST 46 H (14-36) IU/L ALT 28 (9-52) IU/L Alkaline Phosphatase 72 (38-126) U/L Total Creatine Kinase 233 H (30-135) U/L CK-MB (CK-2) 2.37 (<2.37) ng/mL CK-MB (CK-2) Rel Index 1.0 L (1.5-5.0) % Troponin I 0.018 (0.01-0.034) ng/mL Total Protein 7.7 (6.3-8.2) g/dL Albumin 4.2 (3.5-5.0) g/dL Globulin 3.5 (1.7-4.1) g/dL Albumin/Globulin Ratio 1.2 (1.0-2.8) Lipase 99 (23-300) U/L Influenza A & B (PCR) (Negative) 11/26/18 11/26/18 11/26/18 Range/Units 17:15 17:20 23:00 WBC (4.5-11.0) X10^3/uL RBC (4.0-5.2) X10^6/uL Hgb (12.0-16.0) g/dL Hct (36-46) % MCV (80-100) fL MCH (26-34) PG MCHC (30-36) % RDW (11.6-14.8) % Plt Count (150-400) X10^3/uL Neut % (Auto) (50-75) % Lymph % (Auto) (25-40) % [place] % (Auto) (3-14) % Eos % (Auto) (2-4) % Baso % (Auto) (0-2) % Neut # (Auto) (1703-6630) /uL Lymph # (Auto) (5851-2223) /uL [place] # (Auto) (0-900) /uL Eos # (Auto) (0-450) /uL Baso # (Auto) (0-100) /uL PT (10.1-12.7) SECONDS INR (0.9-1.3) APTT (26.4-36.2) SECONDS Sodium 138 (137-145) mmol/L Potassium 3.3 L (3.4-5.1) mmol/L Chloride 105 (98-107) mmol/L Carbon Dioxide 26 (22-32) mmol/L BUN 12 (7-17) mg/dL Creatinine 0.70 (0.52-1.04) mg/dL Estimated GFR > 60.0 (>60) mL/min BUN/Creatinine Ratio 17.1 (6-22) Glucose 131 H (80-110) mg/dL Lactate 1.3 (0.7-2.1) mmol/L Calcium 7.9 L (8.4-10.2) mg/dL Total Bilirubin (0.2-1.3) mg/dL AST (14-36) IU/L ALT (9-52) IU/L Alkaline Phosphatase (38-126) U/L Total Creatine Kinase (30-135) U/L CK-MB (CK-2) (<2.37) ng/mL CK-MB (CK-2) Rel Index (1.5-5.0) % Troponin I (0.01-0.034) ng/mL Total Protein (6.3-8.2) g/dL Albumin (3.5-5.0) g/dL Globulin (1.7-4.1) g/dL Albumin/Globulin Ratio (1.0-2.8) Lipase (23-300) U/L Influenza A & B (PCR) Positive, type a A (Negative) MDM Narrative Medical decision making narrative: 73-year-old female presents with upper respiratory symptoms consistent with flu as well as a syncopal episode which was unprovoked. She has a history of use of hydrochlorothiazide and a critically low potassium. She requires hospitalization for stabilization and further evaluation Discharge Plan Departure Patient Disposition: Admitted as Observation Clinical Impression: Acute hypokalemia, Flu Discharge Date/Time: 11/26/18 20:20 Interventions: ED Discharge Assessment Last Done: 11/26/18 19:59 Admit Date/Time: 11/26/18 19:26 Admit Provider: Reji Dumont
--- NOTE | 2018-11-27 05:55 | P.PN_ITS ---
Subjective Date Patient Seen: 11/27/18 Interval history: Ayala Davis is a 73-year-old female with a past medical history significant for hypertension, hyperlipidemia, hypothyroidism and very strong family history of cardiovascular disease who presented with flu-like symptoms for 4-5 days, weakness and syncopal episode. The patient is resting in bed comfortably and in no acute distress. He or she denies headache, ear pain, rhinitis, sore throat, cough, shortness of breath, chest pain, abdominal pain, nausea, vomiting, fever, chills, dysuria, diarrhea or constipation. He or she is voiding and eliminating without difficulty. He or she is up ambulating without or with assistance. Exam Vital Signs (past 8 hours): - 11/27/18 00:26 11/27/18 04:00 11/27/18 04:35 Temperature 98.8 F 98.1 F Pulse Rate 61 67 Pulse Rate [Orthostatic Lying] 67 Pulse Rate [Orthostatic Sitting] 77 Pulse Rate [Orthostatic Standing] 82 Respiratory Rate 18 20 Blood Pressure 130/70 137/76 Blood Pressure [Orthostatic Lying] 137/76 Blood Pressure [Orthostatic Sitting] 133/83 Blood Pressure [Orthostatic Standing] 115/76 Pulse Oximetry 95 95 Oxygen Delivery Method Room Air Oxygen Flow Rate 0 Narrative Exam Narrative: General: No acute distress, well-developed, well-nourished, appropriately intera ctive HEENT: Normocephalic, atraumatic. External ears without defect. Pupils equal, round, and reactive to light and accommodation. Anicteric sclerae, moist conjunctivae, and no lid lag. Oropharynx free of erythema and cobble stoning with moist mucosa. Neck: Supple with full range of motion. No jugular venous distension. No bruits. No lymphadenopathy or thyromegaly. Cardiovascular: Regular rate and rhythm without murmurs, rubs, or gallops appreciated Pulmonary: Clear to auscultation bilaterally without crackles, wheezes, or rhonchi. Normal respiratory effort with no use of accessory muscles. Abdomen: Bowel tones present. Soft, nontender, nondistended. No hepatosplenomegaly or masses appreciated. Extremities: No clubbing, cyanosis, or edema. Skin: Normal temperature, turgor, and texture; no rash, ulcers, or subcutaneous nodules appreciated. Neurological: Cranial nerves grossly intact. Normal muscle strength, tone, and bulk. Reflexes, coordination, and sensory function within normal limits. No known gait impairment. Psychiatric: Normal mood and affect. Alert and oriented to person, place, and time. Objective Labs Result Diagrams: 11/26/18 17:15 11/26/18 23:00 Labs: Laboratory Results - last 24 hr 11/26/18 11/26/18 11/26/18 17:15 17:15 17:15 WBC 4.2 L RBC 4.86 Hgb 14.8 Hct 43.4 MCV 89.5 MCH 30.6 MCHC 34.2 RDW 12.8 Plt Count 190 Neut % (Auto) 74.9 Lymph % (Auto) 15.9 L [place] % (Auto) 7.7 Eos % (Auto) 0.6 L Baso % (Auto) 0.9 Neut # (Auto) 3200 Lymph # (Auto) 700 L [place] # (Auto) 300 Eos # (Auto) 0 Baso # (Auto) 0 PT 11.5 INR 1.0 APTT 28 Sodium 138 Potassium 2.4 L* Chloride 96 L Carbon Dioxide 30 BUN 13 Creatinine 0.90 Estimated GFR > 60.0 BUN/Creatinine Ratio 14.4 Glucose 124 H Lactate Calcium 8.6 Total Bilirubin 0.8 AST 46 H ALT 28 Alkaline Phosphatase 72 Total Creatine Kinase 233 H CK-MB (CK-2) 2.37 CK-MB (CK-2) Rel Index 1.0 L Troponin I 0.018 Total Protein 7.7 Albumin 4.2 Globulin 3.5 Albumin/Globulin Ratio 1.2 Lipase 99 Influenza A & B (PCR) 11/26/18 11/26/18 11/26/18 17:15 17:20 23:00 WBC RBC Hgb Hct MCV MCH MCHC RDW Plt Count Neut % (Auto) Lymph % (Auto) [place] % (Auto) Eos % (Auto) Baso % (Auto) Neut # (Auto) Lymph # (Auto) [place] # (Auto) Eos # (Auto) Baso # (Auto) PT INR APTT Sodium 138 Potassium 3.3 L Chloride 105 Carbon Dioxide 26 BUN 12 Creatinine 0.70 Estimated GFR > 60.0 BUN/Creatinine Ratio 17.1 Glucose 131 H Lactate 1.3 Calcium 7.9 L Total Bilirubin AST ALT Alkaline Phosphatase Total Creatine Kinase CK-MB (CK-2) CK-MB (CK-2) Rel Index Troponin I Total Protein Albumin Globulin Albumin/Globulin Ratio Lipase Influenza A & B (PCR) Positive, type a A Assessment & Plan Assessment & Plan narrative: Ayala Davis is a 73-year-old female with a past medical history signific ant for hypertension, hyperlipidemia, hypothyroidism and very strong family history of cardiovascular disease who presented with flu-like symptoms for 4-5 days, weakness and syncopal episode. 1. Acute hypokalemia, present on admission -Patient has not had any nausea, vomiting or diarrhea prior to admission. She has previously been on hydrochlorothiazide which he has not taken for the last few days. -Complaints of muscular weakness, no complaints palpitations or chest pain. -Initial potassium 2.4 and received 40 mEq IV and 40 mEq by mouth in ED. Continue to monitor and replete as needed. -12 lead EKG shows sinus rhythm ventricular rate of 63 with occasional PAC, no ventricular ectopy, Q-waves in inferior leads. -Continue to monitor closely on telemetry. 2. Possible hypotension or orthostasis in setting of chronic treated hypertension, present on admission. Stable. -patient has been taking enalapril-hydrochlorothiazide 20/12.5 mg up until a few days ago. -1 episode of near-syncope and 1 episode of syncope likely related to hypotension and dehydration. No chest pain. -Initial blood pressure on arrival is 115/77. The patient has received fluid bolus in emergency department. Held antihypertensive for now. -Ordered orthostatic vital signs. 3. Acute influenza A upper respiratory infection, present on admission. Active. -Patient presented with flu symptoms for 4-5 days with dry nonproductive cough malaise, sore throat, headache, nausea and vomiting, no diarrhea or constipatio n. Patient with lack of appetite and apparent poor oral fluid intake. -Chest xray demonstrated mild to prominent perihilar interstitial markings may be exaggerated by a chronic interstitial changes. Pulmonary edema is difficult to exclude. -Patient's symptoms uncomplicated and not started on Tamiflu. 4. Hypothyroidism, chronic, present on admission. Stable. -Ordered TSH, pending. -Continue levothyroxine 25 mcg daily 5. Hyperlipidemia, chronic, present on admission. Stable. -Continue simvastatin 40 mg daily. Quality VTE Deep Vein Thrombosis/Pulmonary Embolism Present on Admission: No
[2018-11-27] MEDS: PANTOPRAZOLE 20 MG TABLET PO (06:06)
[2018-11-27 06:29] LABS: Add Manual Diff / Slide Review NO; Basophils Absolute Auto 0 /uL (0-100); Basophils Percent Auto 0.8 % (0-2); Eosinophils Absolute Auto 100 /uL (0-450); Eosinophils Percent Auto 1.6 % (2-4); Hematocrit 38.3 % (36-46); Hemoglobin 13.4 g/dL (12.0-16.0); Lymphocytes Absolute Auto 900 /uL (1100-4500); Lymphocytes Percent Auto 27.5 % (25-40); Mean Corpuscular Hemoglobin 31.1 PG (26-34); Monocytes Absolute Auto 300 /uL (0-900); Monocytes Percent Auto 10.3 % (3-14); Neutrophils Absolute Auto 1900 /uL (1500-7000); Neutrophils Percent Auto 59.8 % (50-75); Platelet Count 156 X10^3/uL (150-400); Red Cell Distribution Width 13.4 % (11.6-14.8); White Blood Cell Count 3.2 X10^3/uL (4.5-11.0)
[2018-11-27 06:37] LABS: BUN Creatinine Ratio 18.3 (6-22); Blood Urea Nitrogen 11 mg/dL (7-17); Calcium 7.8 mg/dL (8.4-10.2); Carbon Dioxide 25 mmol/L (22-32); Chloride 106 mmol/L (98-107); Estimated Glomerular Filt Rate > 60.0 mL/min (>60); Glucose 85 mg/dL (80-110); HEMOLYSIS < 15 (0-50); Potassium 3.6 mmol/L (3.4-5.1); Sodium 138 mmol/L (137-145)
[2018-11-27 06:49] LABS: Troponin I 0.022 ng/mL (0.01-0.034)
[2018-11-27 07:36] LABS: Thyroid Stimulating Hormone 6.45 uIU/mL (0.47-4.68)
[2018-11-27 07:50] VITALS: BP 144/95; BP 150/96; BP 159/91; PULSE 68; PULSE 73; PULSE 75; RESP 18; TEMP 36.8; O2SAT 97
--- NOTE | 2018-11-27 08:03 | P.DS_ITS ---
History of Present Illness Date Patient Seen: 11/26/18 Chief complaint: syncopal episode,passed out today,low body temp Narrative: Written by Reji WALTON: This is a 73-year-old female patient with a history of hypertension, hyperlipidemia, hypothyroidism and very strong family history of cardiovascular disease who presents today to the ER with illness for 4-5 days, weakness and syncopal episode. The patient traveled to the [facility] from [place] arriving 1 [place] ago. Shortly after arriving the patient began feeling ill complaining of dry nonproductive cough, sore throat and headache as well as general malaise and poor appetite. Patient states she fell twice today feeling initial had tingling and weakness in her extremities. The 1st time was shortly after awaking in the morning where she fell landing on her right hip but did not strike her head and denies loss of consciousness neck or back pain and has been ambulatory since. The 2nd time occurred as the patient was making tea, again she felt had tingling weakness and this time reports the going to the floor and passing. The patient denies trauma related to either fall. Patient has a history of hypertension takes enalapril hydrochlorothiazide 20/12.5 mg daily which she indicates she has not taken for the last few days. Her pressure on arrival to the ER was 115/77 with a heart rate of 76. lab work in the ER shows a normal CBC and coags, CMP reveals potassium 2.4 sodium 138 and BUN of 13 and creatinine of 0.9. Her troponin is negative at 0.018. on serology she is found to be positive for influenza A.The patient denies complaints of disease than the episodic tingling preceding her falls. She denies changes in vision or hearing and has complained of a dull cervical occipital headache without nuchal rigidity. She denies chest pain or palpitations. She has had a positive cough denies shortness of breath. She describes having no appetite related to upset stomach but has not vomited until arrival to the floor for admission. She denies constipation diarrhea and reports no urinary symptoms. The patient is admitted for hypokalemia, generalized weakness and influenza A. Discharge Providers Date of admission: 11/26/18 19:26 Discharge Date: 11/27/18 Consults: 11/26/18 21:51 Consult to Dietitian, Adult Routine Comment: Reason For Exam: hypokalemia, HCTZ 03/29/19 21:52 Consult to Discharge Planning Routine Comment: visiting from [place], here 2 more weeks Discharge provider: Tess Lorenz DO Summary Discharge Diagnosis: 1. Acute hypokalemia, present on admission. Resolved. 2. Acute orthostatic hypotension with syncope, secondary to hypovolemia, present on admission. Resolved. 3. Acute influenza A upper respiratory infection, present on admission. Resolving. 4. Hypothyroidism, chronic, present on admission. Stable. 5. Hyperlipidemia, chronic, present on admission. Stable. Hospital Course: Ayala Davis is a 73-year-old female with a past medical history significant for hypertension, hyperlipidemia, hypothyroidism and very strong family history of cardiovascular disease who presented with flu-like symptoms for 4-5 days, weakness and syncopal episode. 1. Acute hypokalemia, present on admission. Resolved. -Patient has not had any nausea, vomiting or diarrhea prior to admission. She mc s previously been on hydrochlorothiazide which he has not taken for the last few days. -Complaints of muscular weakness likely due to hypokalemia. No complaints palpitations or chest pain. -Initial potassium 2.4 and received potassium chloride 80 mEq IV and 80 mEq PO total. Continued to monitor and replete as needed. Plan for BMP outpatient prior to returning to [facility] in 3-5 days at walk-in clinic. -12 lead EKG shows sinus rhythm ventricular rate of 63 with occasional PAC, no ventricular ectopy, Q-waves in inferior leads. -Continued to monitor closely on telemetry. 2. Acute orthostatic hypotension with syncope, secondary to hypovolemia, present on admission. Resolved. -1 episode of near-syncope and 1 episode of syncope likely related to hypotension and dehydration. No chest pain. -Initial blood pressure on arrival is 115/77. The patient has received fluid bolus in emergency department. Held antihypertensive for now. -Initially mildly orthostatic which resolved with IV fluid resucitation. -Patient has been taking enalapril-hydrochlorothiazide 20/12.5 mg up until a few days ago and restarted at time of discharge. 3. Acute influenza A upper respiratory infection, present on admission. Resolving. -Patient presented with flu symptoms for 4-5 days with dry nonproductive cough malaise, sore throat, headache, nausea and vomiting, no diarrhea or constipation. Patient with lack of appetite and apparent poor oral fluid intake. -Chest xray demonstrated mild to prominent perihilar interstitial markings may be exaggerated by a chronic interstitial changes. -Patient's symptoms uncomplicated and not started on Tamiflu. 4. Hypothyroidism, chronic, present on admission. Stable. -TSH mildly elevated at 6.45 and free T4 normal. -Continued levothyroxine 25 mcg daily 5. Hyperlipidemia, chronic, present on admission. Stable. -Continued simvastatin 40 mg daily and equivalent of ASA called carbasalaate. Status at Discharge Functional status at discharge: independent ambulation Overall status at discharge: patient is progressing back to baseline Exam Vital Signs (past 8 hours): - 11/27/18 00:26 11/27/18 04:00 11/27/18 04:35 Temperature 98.8 F 98.1 F Pulse Rate 61 67 Pulse Rate [Orthostatic Lying] 67 Pulse Rate [Orthostatic Sitting] 77 Pulse Rate [Orthostatic Standing] 82 Respiratory Rate 18 20 Blood Pressure 130/70 137/76 Blood Pressure [Orthostatic Lying] 137/76 Blood Pressure [Orthostatic Sitting] 133/83 Blood Pressure [Orthostatic Standing] 115/76 Pulse Oximetry 95 95 Oxygen Delivery Method Room Air Oxygen Flow Rate 0 Narrative Exam Narrative: General: Elderly female sitting in bedside chair and in no acute distress, appears to be recovering well from influenza, no longer orthostatic, well- developed, well-nourished, appropriately interactive. HEENT: Normocephalic, atraumatic. External ears without defect. Pupils equal, round, and reactive to light. Anicteric sclerae, moist conjunctivae, and no lid lag. Neck: Supple with full range of motion. No lymphadenopathy or thyromegaly. Cardiovascular: Regular rate and rhythm without murmurs, rubs, or gallops appreciated Pulmonary: Clear to auscultation bilaterally without crackles, wheezes, or rhon chi. Normal respiratory effort with no use of accessory muscles. Abdomen: Soft, bowel sounds present, nontender, nondistended. No hepatosplenomegaly or masses appreciated. Extremities: No clubbing, cyanosis, or edema. Skin: Normal temperature, turgor, and texture; no rash, ulcers, or subcutaneous nodules appreciated. Neurological: Cranial nerves grossly intact. Psychiatric: Normal mood and affect. Alert and oriented to person, place, and time. Objective Labs Result Diagrams: 11/27/18 06:15 11/27/18 06:15 Labs: Laboratory Results - last 24 hr 11/26/18 11/26/18 11/26/18 17:15 17:15 17:15 WBC 4.2 L RBC 4.86 Hgb 14.8 Hct 43.4 MCV 89.5 MCH 30.6 MCHC 34.2 RDW 12.8 Plt Count 190 Neut % (Auto) 74.9 Lymph % (Auto) 15.9 L Trinity % (Auto) 7.7 Eos % (Auto) 0.6 L Baso % (Auto) 0.9 Neut # (Auto) 3200 Lymph # (Auto) 700 L Trinity # (Auto) 300 Eos # (Auto) 0 Baso # (Auto) 0 PT 11.5 INR 1.0 APTT 28 Sodium 138 Potassium 2.4 L* Chloride 96 L Carbon Dioxide 30 BUN 13 Creatinine 0.90 Estimated GFR > 60.0 BUN/Creatinine Ratio 14.4 Glucose 124 H Lactate Calcium 8.6 Magnesium Total Bilirubin 0.8 AST 46 H ALT 28 Alkaline Phosphatase 72 Total Creatine Kinase 233 H CK-MB (CK-2) 2.37 CK-MB (CK-2) Rel Index 1.0 L Troponin I 0.018 Total Protein 7.7 Albumin 4.2 Globulin 3.5 Albumin/Globulin Ratio 1.2 Lipase 99 TSH Influenza A & B (PCR) 11/26/18 11/26/18 11/26/18 17:15 17:20 23:00 WBC RBC Hgb Hct MCV MCH MCHC RDW Plt Count Neut % (Auto) Lymph % (Auto) Trinity % (Auto) Eos % (Auto) Baso % (Auto) Neut # (Auto) Lymph # (Auto) Trinity # (Auto) Eos # (Auto) Baso # (Auto) PT INR APTT Sodium 138 Potassium 3.3 L Chloride 105 Carbon Dioxide 26 BUN 12 Creatinine 0.70 Estimated GFR > 60.0 BUN/Creatinine Ratio 17.1 Glucose 131 H Lactate 1.3 Calcium 7.9 L Magnesium Total Bilirubin AST ALT Alkaline Phosphatase Total Creatine Kinase CK-MB (CK-2) CK-MB (CK-2) Rel Index Troponin I Total Protein Albumin Globulin Albumin/Globulin Ratio Lipase TSH Influenza A & B (PCR) Positive, type a A 11/27/18 11/27/18 11/27/18 06:15 06:15 06:15 WBC 3.2 L RBC 4.30 Hgb 13.4 Hct 38.3 MCV 89.0 MCH 31.1 MCHC 35.0 RDW 13.4 Plt Count 156 Neut % (Auto) 59.8 Lymph % (Auto) 27.5 Trinity % (Auto) 10.3 Eos % (Auto) 1.6 L Baso % (Auto) 0.8 Neut # (Auto) 1900 Lymph # (Auto) 900 L Trinity # (Auto) 300 Eos # (Auto) 100 Baso # (Auto) 0 PT INR APTT Sodium 138 Potassium 3.6 Chloride 106 Carbon Dioxide 25 BUN 11 Creatinine 0.60 Estimated GFR > 60.0 BUN/Creatinine Ratio 18.3 Glucose 85 Lactate Calcium 7.8 L Magnesium 2.0 Total Bilirubin AST ALT Alkaline Phosphatase Total Creatine Kinase CK-MB (CK-2) CK-MB (CK-2) Rel Index Troponin I 0.022 Total Protein Albumin Globulin Albumin/Globulin Ratio Lipase TSH 6.45 H Influenza A & B (PCR) Discharge Plan Discharge Plan Patient Disposition: Home Discharge comment: You are being discharged home. Please have labs (BMP) drawn in 3-5 days at the walk-in clinic. If your potassium is low at that time then you will need to be seen by a physician in the facility to have it repleted. Please try to get plenty of rest and stay well-hydrated. You may restart your blood pressure medication. Discharge Med Rec/Prescriptions Prescriptions: Continued enalapril-hydrochlorothiazide 20 mg PO DAILY RF: 0 CARBASALAATCALCIUM 100 mg PO DAILY RF: 0 levothyroxine 25 mcg PO DAILY RF: 0 simvastatin 40 mg Tablet 40 mg PO BEDTIME RF: 0 Other Ambulatory Orders: Basic Metabolic Panel (Routine) Timeframe: 3 Days Location: Laboratory Ordered By: Tess Lorenz Provider Discharge Instructions Diet: Diet as Tolerated, Low-fat, Low-sodium and Low-cholesterol Activity: Activity as tolerated. Visit Report/Discharge Packet Instructions: DI for Influenza -- Adult, DI for Hypokalemia Discharge Data Attending Provider: Reji Dumont Admit Date/Time: 11/26/18 19:26 Discharges patient from system. Discharge Date/Time: 11/27/18 11:50 Quality VTE Deep Vein Thrombosis/Pulmonary Embolism Present on Admission: No
[2018-11-27 08:38] LABS: Free T4, Direct Thyroxine 1.46 ng/dL (0.78-2.19)
[2018-11-27] MEDS: LEVOTHYROXINE 25 MCG TABLET PO (09:28)
[2018-11-27] MEDS: POTASSIUM CHLORIDE 20 MEQ TAB 40 MEQ PO (09:28)
--- NOTE | 2018-11-27 10:48 | CM.DANOTE ---
DCP: Case received, EMR reviewed and met with patient. Introduced self and role. DCP template completed with information currently available. Patient is a 73 year old female who admitted yesterday evening to the care of the hospitalist team. Payer: confirmed: [employer]. Patient came to hospital via family vehicle due to weakness, syncopal episode. Patient carries diagnosis of Influenza A, as well as Hypokalemia. Patient resides in [place], and is here visiting with her , and is staying with her daughter. Patient pleasant, and is alert and oriented. P: DCP to continue to follow. Should be able to go home when she is medically stable. Vandana Sandoval RN/Currency Machine Operator
== END 2018-11-27 11:50 | disposition home or self-care (01) ==
LOC: ED 19:24 → AC 19:27
PROVIDERS: Emergency Medicine; Internal Medicine; Nurse Practitioner Family; Admitting Provider Nurse Practitioner Adult Health; Emergency Provider Emergency Medicine; Visit Provider Nurse Practitioner Adult Health
DX: J10.1 Influenza due to other identified influenza virus with other respiratory manifestations (principal); E87.6 Hypokalemia; R55 Syncope and collapse; I10 Essential (primary) hypertension; E03.9 Hypothyroidism, unspecified
CPT/HCPCS: 36415; 36591; 71045; 80048; 80053; 82550; 82553; 83605; 83690; 83735; 84439; 84443; 84484; 85025; 85610; 85730; 87400; 93005; 96360; 96361; 99283; 99284; G0378; J3480

== ENCOUNTER → 2018-12-02 10:30 | Outpatient (CLI) | payer OTHER, SELFPAY ==
[2018-11-26 22:06] VITALS: BMI 27.3
[2018-12-02 11:58] LABS: Blood Urea Nitrogen 16 mg/dL (7-17); Calcium 9.1 mg/dL (8.4-10.2); Carbon Dioxide 28 mmol/L (22-32); Chloride 102 mmol/L (98-107); Estimated Glomerular Filt Rate > 60.0 mL/min (>60); Glucose 81 mg/dL (80-110); HEMOLYSIS < 15 (0-50); Potassium 3.5 mmol/L (3.4-5.1); Sodium 140 mmol/L (137-145)
== END ==
PROVIDERS: Visit Provider Internal Medicine
DX: E87.6 Hypokalemia (principal)
CPT/HCPCS: 36415; 80048